=== PATIENT | female | born 1975 | race Asian ===

== ENCOUNTER → 2017-01-20 | Outpatient (CLI) | payer OTHER ==
[~2017-01-20] MED LIST: CEFT1FRO2 IV; HYDR-3138 PO; METH10TA6 PO; OMEP20TA62 PO
== END | disposition home or self-care (01) ==
LOC: PETCFH 08:41
PROVIDERS: ATTEND Internal Medicine Endocrinology, Diabetes & Metabolism
DX: E05.90 Thyrotoxicosis, unspecified without thyrotoxic crisis or storm (principal)
CPT/HCPCS: 78013; A9516